=== PATIENT | female | born 1950 | race Caucasian/White ===

== ENCOUNTER 2016-08-09 13:13 | Day surgery (SDC) | payer OTHER ==
[~2016-08-09] VITALS: Ht 149.9 cm; Wt 69.2 kg
[2016-08-09] MEDS ORDERED: METF500T PO (15:14)
[2016-08-09] MEDS ORDERED: CALC-277 PO (15:14)
[2016-08-09] MEDS ORDERED: CYAN100018 PO (15:14)
[2016-08-09] MEDS ORDERED: IBUP100T29 PO (15:14)
[2016-08-09] MEDS ORDERED: LANT3I SC (15:14)
[2016-08-09] MEDS ORDERED: PIOG30TA26 PO (15:14)
[2016-08-09] MEDS ORDERED: LOSA50TA6 PO (15:14)
[2016-08-09] MEDS ORDERED: HYDR-3498 PO (15:14)
[2016-08-09] MEDS ORDERED: ZOC10 PO (15:14)
[2016-08-09] MEDS ORDERED: LABE100T39 PO (15:14)
[2016-08-09 15:21] VITALS: Ht 149.9 cm; Wt 69.2 kg
[2016-08-09 17:12] VITALS: BP 175/77; PULSE 70; RESP 15
[2016-08-09] MEDS ORDERED: LIDOCAINE 2% (SDV) 5 ML INJ ONE (17:23)
[2016-08-09] MEDS ORDERED: PROPOFOL 60 ML ONE (17:23)
[2016-08-09] MEDS ORDERED: hydrALAzine 20 MG INJ ONE (18:07)
[2016-08-09 18:21] VITALS: BP 141/68; RESP 20
--- NOTE | 2016-08-11 15:50 | GILP ---
DATE OF PROCEDURE: 08/09/2016 NAME OF PROCEDURE: Esophagogastroduodenoscopy with biopsies. SURGEON: Kimberley Liriano MD. HISTORY AND INDICATIONS: The patient is being evaluated for early satiety and abdominal pain. PREMEDICATION: Monitored anesthesia care by anesthesiologist. INSTRUMENT USED: Olympus panendoscope. TECHNIQUE: After informed consent, with the patient/relatives understanding the procedure, its indic ations, potential risks and complications, including but not limited to: allergic reaction, bleeding , perforation or infection, and after all pertinent questions were answered to the patients satisfac tion, the patient/relatives signed witnessed informed consent. Following this, premedication was administered slowly IV push under careful cardiovascular and respi ratory monitoring with pulse oximetry, automatic blood pressure and classroom monitor. Once the sedative effect was achieved the patient was place in the left lateral decubitus, the panen doscope was introduced and advanced under visual control. Careful examination of the upper gastrointestinal tract, both on insertion as well as withdrawal of the instrument disclosed the following findings: ESOPHAGUS: The mucosa of the entire esophagus appears within normal limits. There is no evidence of esophagitis, varices, neoplasm or stricture. No hiatal hernia identified. STOMACH: Upon entrance to the stomach air was insufflated, the gastric babcock distended normally. The mucosa of the fundus, body and antrum of the stomach was carefully examined shows significant eryth jodi and edema of the mucosa of a moderate degree. Biopsies were obtained to rule out H. pylori infection. PYLORUS: The pylorus appears patent and within normal limits, with no evidence of gastric outlet obs truction. DUODENUM: The duodenal mucosa was carefully examined in the duodenal bulb as well as the second port ion of the duodenum and appears unremarkable with no evidence of duodenitis, ulcer or neoplasm. The instrument was then withdrawn, the patient tolerated the procedure well and was transfer out of the endoscopy suite awake, and in good condition to continue recovery under observation. ____ IMPRESSION: 1. Gastritis, rule out Helicobacter pylori infection. Biopsies were obtained. PLAN: The patient will be treated with PPIs. Pathology will be reviewed as soon as it is available. Further recommendation will depend on the patient's clinical course as well as review of biopsies. Dictated By: KIMBERLEY LIRIANO MS/MINH Conf#: [id number] DID#: [id number] CC: KIMBERLEY LIRIANO;*End*
--- NOTE | 2016-08-11 19:50 | GILP ---
DATE OF PROCEDURE: 08/09/2016 DATE: 08/09/2016 NAME OF PROCEDURE: Colonoscopy to the cecum. SURGEON: Kimberley Liriano MD. PREOPERATIVE DIAGNOSIS(ES): POSTOPERATIVE DIAGNOSIS(ES): HISTORY AND INDICATIONS: The patient is being evaluated for a history of colon polyps. PREMEDICATION: Monitored anesthesia care by anesthesiologist. INSTRUMENT USED: Olympus colonoscope. PREPARATION: Adequate. TECHNIQUE: After informed consent, with the patient/relatives understanding the procedure, its indic ations potential risks and complications, including but not limited to: allergic reaction, bleeding, perforation, infection, missed lesions and after all pertinent questions were answered to the patie nt's satisfaction, the patient/relatives signed the witnessed informed consent. Following this, premedication was administered slowly IV push by under careful cardiovascular and re spiratory monitoring with pulse oximetry, automatic blood pressure and radiation monitor. Once the sedativ e effect was achieved, the patient was placed in the left lateral decubitus position, digital rectal examination was performed. The colonoscope was then introduced and advanced under visual control th roughout all segments of the colon including: the rectum, sigmoid, descending colon, splenic flexure , transverse colon, hepatic flexure, ascending colon and finally reaching the cecum which was clearl y identified by transillumination, finger indentation and the ileocecal valve. Careful examination o f the mucosa of the lower gastrointestinal tract both on insertion as well as withdrawal of the inst rument disclosed the following findings: Rectal Examination: No evidence of perirectal disease, no masses. Colonic Mucosa: The colonic mucosa is remarkable for diverticulosis in left side of the colon which is mild. The mucosa appears otherwise unremarkable. The ileocecal valve was clearly identified; appears unre markable. The instrument was withdrawn reexamining the mucosa in detail. No additional abnormaliti es are noted, with the exception of moderate-sized internal hemorrhoids. The instrument was then withdrawn, the patient tolerated the procedure well and was transferred out of the Endoscopy Suite awake and in good condition to continue recovery under observation. IMPRESSION 1. Diverticulosis, left side of the colon, mild. 2. Moderate-sized internal hemorrhoids. 3. A personal history of colon polyps. RECOMMENDATIONS: The patient will be followed up as an outpatient. Further recommendation will de pend on her clinical course. Surveillance colonoscopy in 5 years is recommended; Hemoccult stool te sting is recommended. Dictated By: KIMBERLEY LIRIANO MS/NTS Conf#: [id number] DID#: [id number]
== END 2016-08-09 20:09 | disposition home or self-care (01) ==
LOC: GIL 13:13
PROVIDERS: ATTEND Internal Medicine Gastroenterology
DX: Z12.11 Encounter for screening for malignant neoplasm of colon (principal); K29.50 Unspecified chronic gastritis without bleeding; K57.90 Diverticulosis of intestine, part unspecified, without perforation or abscess without bleeding; K64.8 Other hemorrhoids; I10 Essential (primary) hypertension; E11.9 Type 2 diabetes mellitus without complications; E78.5 Hyperlipidemia, unspecified; E66.9 Obesity, unspecified; Z68.30 Body mass index [BMI] 30.0-30.9, adult
CPT/HCPCS: 43239; 45378; 82962; 88305; 88312; J0360; Z7610